=== PATIENT | female | born 1995 | race Caucasian/White ===

== ENCOUNTER 2016-10-21 23:41 | Emergency (ER) | payer OTHER ==
[~2016-10-21] VITALS: Ht 157.5 cm; Wt 51.7 kg
[2016-10-21 23:46] VITALS: TEMP 36.7; Ht 157.5 cm; Wt 51.7 kg
[2016-10-22] MEDS ORDERED: SODIUM CHLORIDE 0.9% 1000ML 1,000 ML IV STA (00:21)
[2016-10-22] MEDS ORDERED: PROCHLORPERAZINE 5 MG/ML 2 ML VIAL IV STA (00:21)
[2016-10-22] MEDS ORDERED: DiphenhydrAMINE HCL 50 MG/ML VIAL IV STA (00:21)
[2016-10-22] MEDS ORDERED: METHYLPREDNISOLONE 125 MG VIAL IV STA (00:21)
--- NOTE | 2016-10-22 00:29 | EMERGENCY ROOM VISIT NOTE ---
History Report prepared by Prabhu: Harvey Jacinto Under the Supervision of: Dr. Anaya Oneal M.D. First contact with patient: 00:11 Chief Complaint: HEAD PAIN Stated Complaint: BLURRED VISION,HEAD PAIN,BACK STIFF,NAUSEOUS History of Present Illness The patient is a 21 year old female who presents to the Emergency Room with complaints of an on and off headache for the past month. She currently rates her discomfort as a 2/10 in severity, and it can go up to 6-7/10 in severity. The patient states that the pain is like a pressure and a sharp pain in the back of her head, and she states that it is different than he past migraines. She states that she used to get five or six migraines per week, and her last one was about 3 years ago when she was put on medication, though she states that she no longer takes it. She states that she has been having nausea, blurry vision, and a sore throat, and it is worse when she is focusing. She denies any fever or vomiting. Source of History: patient Onset: past month Position: head Symptom Intensity: 2/10 Quality: pressure, sharp Timing: other (on and off) Modifying Factors (Worsening): other (focusing) Associated Symptoms: + nausea, + sorethroat, No fevers, No vomiting Note: Associated symptoms: Blurry vision Review of Systems See HPI for pertinent positives & negatives. A total of 10 systems reviewed and were otherwise negative. Past Medical & Surgical Medical Problems: (1) Migraines Surgical Problems: (1) H/O knee surgery Family History Heart disease Hypertension Kidney disease Kidney stones Lung disease Social History Smoking Status: Never Smoker Marital Status: single Housing Status: lives with roommate Occupation Status: Organizer student Current/Historical Medications Scheduled Prednisone (Prednisone), 10 MG PO DIRECTED Physical Exam Vital Signs Date Time Temp Pulse Resp B/P Pulse Ox O2 Delivery O2 Flow Rate FiO2 10/22/16 02:25 78 16 122/72 99 10/21/16 23:46 36.7 89 18 124/83 94 Room Air Physical Exam Vital signs reviewed. General: Well-appearing female, in no significant distress. HEENT: No scleral icterus, PERRLA, neck supple. Atraumatic. Cardiovascular: Regular rate and rhythm, no extra sounds. Pulmonary: Clear to auscultation bilaterally, normal work of breathing. Abdomen: Soft, nontender, nondistended, positive bowel sounds. Musculoskeletal: Atraumatic, no peripheral edema. Neurologic: Patient awake alert and oriented x 3, full strength in all 4 extremities. Cranial nerves 2 through 12 grossly intact. Skin: Warm, dry, no rash Medical Decision & Procedures ER Provider Diagnostic Interpretation: Radiology results as stated below per my review and radiologist interpretation: CT HEAD: No evidence of acute infarct, hemorrhage, mass or edema. The sinuses are patent. No acute osseous abnormalities. Laboratory Results 10/22/16 00:58 Red Blood Count 4.77, Mean Corpuscular Volume 91.4, Mean Corpuscular Hemoglobin 31.4, Mean Corpuscular Hemoglobin Concent 34.4, Mean Platelet Volume 9.4, Neutrophils (%) (Auto) 52.7, Lymphocytes (%) (Auto) 38.4, Monocytes (%) (Auto) 7.5, Eosinophils (%) (Auto) 0.8, Basophils (%) (Auto) 0.3, Neutrophils # (Auto) 6.29, Lymphocytes # (Auto) 4.56, Monocytes # (Auto) 0.89, Eosinophils # (Auto) 0.09, Basophils # (Auto) 0.03 10/22/16 00:58 Test 10/22/16 00:58 White Blood Count 11.89 K/uL (4.8-10.8) Red Blood Count 4.77 M/uL (4.2-5.4) Hemoglobin 15.0 g/dL (12.0-16.0) Hematocrit 43.6 % (37-47) Mean Corpuscular Volume 91.4 fL (80-100) Mean Corpuscular Hemoglobin 31.4 pg (25-34) Mean Corpuscular Hemoglobin Concent 34.4 g/dl (32-36) Platelet Count 329 K/uL (130-400) Mean Platelet Volume 9.4 fL (7.4-10.4) Neutrophils (%) (Auto) 52.7 % Lymphocytes (%) (Auto) 38.4 % Monocytes (%) (Auto) 7.5 % Eosinophils (%) (Auto) 0.8 % Basophils (%) (Auto) 0.3 % Neutrophils # (Auto) 6.29 K/uL (1.4-6.5) Lymphocytes # (Auto) 4.56 K/uL (1.2-3.4) Monocytes # (Auto) 0.89 K/uL (0.11-0.59) Eosinophils # (Auto) 0.09 K/uL (0-0.5) Basophils # (Auto) 0.03 K/uL (0-0.2) RDW Standard Deviation 42.8 fL (36.4-46.3) RDW Coefficient of Variation 12.7 % (11.5-14.5) Immature Granulocyte % (Auto) 0.3 % Immature Granulocyte # (Auto) 0.03 K/uL (0.00-0.02) Anion Gap 7.0 mmol/L (3-11) Est Creatinine Clear Calc Drug Dose 89.9 ml/min Estimated GFR () 124.9 Estimated GFR (Non- 107.8 BUN/Creatinine Ratio 12.7 (10-20) Calcium Level 9.3 mg/dl (8.5-10.1) Total Bilirubin 0.4 mg/dl (0.2-1) Direct Bilirubin < 0.1 mg/dl (0-0.2) Aspartate Amino Transf (AST/SGOT) 16 U/L (15-37) Alanine Aminotransferase (ALT/SGPT) 25 U/L (12-78) Alkaline Phosphatase 62 U/L (45-117) Total Protein 8.2 gm/dl (6.4-8.2) Albumin 4.4 gm/dl (3.4-5.0) Thyroid Stimulating Hormone (TSH) 6.330 uIu/ml (0.300-4.500) Free Thyroxine 1.13 ng/dl (0.80-1.60) Free Triiodothyronine 4.82 pg/ml (2.30-4.20) Human Chorionic Gonadotropin, Qual NEG (NEG) Laboratory results per my review. Medications Administered Medications (Trade) Dose Ordered Sig/Caleb Route Start Time Stop Time Status Last Admin Dose Admin Methylprednisolone Sodium Succinate 125 mg 125 mg NOW STAT IV 10/22/16 00:21 10/22/16 00:24 DC 10/22/16 01:17 125 MG Sodium Chloride (Nss 1000ml) 1,000 ml @ 999 mls/hr Q1H1M STAT IV 10/22/16 00:21 10/22/16 01:21 DC 10/22/16 01:09 999 MLS/HR ED Course 0013: Past medical records reviewed. The patient was evaluated in room C5. A complete history and physical examination was performed. 0021: Sodium Chloride 1000 ml @ 999 mls/hr IV, Solu-Medrol IV 125mg IV 0158: Upon reevaluation, the patient appeared to have improvement of her symptoms. I discussed findings with her. She verbalized agreement of the treatment plan. She was discharged home. Medical Decision Headache: Intracranial hemorrhage, intracranial mass, migraine headache, tension headache , sinusitis, meningitis This patient was evaluated and appeared to be in no significant distress. Physical examination is fairly unrevealing. Patient was given IV Solu-Medrol, IV Compazine and Benadryl were ordered however the patient declined them. She states her headache is a 2/10. I suspect the patient is suffering from a migraine headache. CT scan of the head was performed as the patient has never experienced a headache of this duration and location. Laboratory work reveals a mild leukocytosis. The patient was given a prescription for a prednisone taper. She'll follow-up with her neurologist upon return home in a few weeks. She will return to the ER for worsening of symptoms or any medical concerns. Impression Primary Impression: Migraine Additional Impression: Headache, occipital Scribe Attestation The scribe's documentation has been prepared under my direction and personally reviewed by me in its entirety. I confirm that the note above accurately reflects all work, treatment, procedures, and medical decision making performed by me. Departure Information Dispostion Home / Self-Care Prescriptions Prednisone (Prednisone) 10 Mg Tab 10 MG PO DIRECTED, #31 TAB 40 mg daily for 4 days, 30 mg for 3 days, 20 mg for 2 days, 10 mg for 2 days. Prov: Anaya Oneal M.D. 10/22/16 Referrals No Doctor, Assigned (PCP) Forms HOME CARE DOCUMENTATION FORM, IMPORTANT VISIT INFORMATION, WORK / SCHOOL INSTRUCTIONS Patient Instructions My [facility] Additional Instructions Diagnosis: Migraine headache Prednisone 40 mg for 4 days, 30 mg for 3 days, 20 mg for 2 days, 10 mg for 2 days. Drink plenty of clear fluids. Tylenol 650 mg every 6 hours as needed for pain. Follow-up with neurology upon return home. Return to the ER for worsening of symptoms or any medical concerns. Problem Qualifiers Primary Impression: Migraine Migraine type: unspecified Status migrainosus presence: with status migrainosus Intractability: intractable Qualified Codes: G43.911 - Migraine , unspecified, intractable, with status migrainosus
[2016-10-22 01:15] LABS: BASO % 0.3 %; BASO ABS # 0.03 K/uL (0-0.2); COMPLETE YES; EOS % 0.8 %; HEMATOCRIT 43.6 % (37-47); IG% 0.3 %; LYMPH % 38.4 %; LYMPH ABS # 4.56 K/uL (1.2-3.4); MEAN CELL VOLUME 91.4 fL (80-100); MEAN CORPUSCULAR HEMOGLOBIN 31.4 pg (25-34); MEAN CORPUSCULAR HGB CONC 34.4 g/dl (32-36); MEAN PLATELET VOLUME 9.4 fL (7.4-10.4); MONO % 7.5 %; NEUT % 52.7 %; PLATELET COUNT 329 K/uL (130-400); RED BLOOD COUNT 4.77 M/uL (4.2-5.4); WHITE BLOOD COUNT 11.89 K/uL (4.8-10.8)
[2016-10-22 01:33] LABS: ALT/SGPT 25 U/L (12-78); AST/SGOT 16 U/L (15-37); BLOOD UREA NITROGEN 10 mg/dl (7-18); BUN/CREATININE RATIO 12.7 (10-20); CALCIUM 9.3 mg/dl (8.5-10.1); CARBON DIOXIDE 29 mmol/L (21-32); CHLORIDE 104 mmol/L (98-107); CREATININE 0.79 mg/dl (0.60-1.20); GLUCOSE 94 mg/dl (70-99); POTASSIUM 3.8 mmol/L (3.5-5.1); SODIUM 140 mmol/L (136-145)
[2016-10-22 01:39] LABS: PREG INTERNAL NEGATIVE QC NEG CLEAR BACKGROUND; PREG INTERNAL POSITIVE QC POS CONTROL LINE
[2016-10-22 01:44] LABS: ALKALINE PHOSPHATASE 62 U/L (45-117)
[2016-10-22] MEDS ORDERED: PRED10TA PO (01:58)
[2016-10-22 02:25] VITALS: BP 122/72; PULSE 78; O2SAT 99
--- NOTE | 2016-10-22 07:08 | DIAGNOSTIC IMAGING REPORT ---
CT SCAN OF THE BRAIN WITHOUT IV CONTRAST CLINICAL HISTORY: Headache. COMPARISON STUDY: No priors. TECHNIQUE: Unenhanced axial CT scan of the brain is performed from the vertex to the skull base. Automated dose control exposure was utilized. CT DOSE: 537.48 mGy.cm FINDINGS: Brain parenchyma: The brain parenchyma is normal in appearance. There is no hemorrhage, mass effect, or evidence of acute territorial ischemia by CT criteria. Garcia-white matter is preserved. No extra-axial fluid collection is seen. Ventricles, sulci, cisterns: Normal in configuration. Intracranial vasculature: The visualized intracranial vasculature at the skull base is normal in appearance. Calvarium: Unremarkable. Sinuses and mastoids: Trace fluid is seen within the sphenoid sinuses. The remaining visualized paranasal sinuses are clear. The mastoid air cells are well pneumatized. Orbits: The bony orbits are grossly intact. IMPRESSION: No acute intracranial abnormality. Electronically signed by: Douglas Miranda M.D. 10/22/2016 7:06 AM Dictated Date/Time: 10/22/2016 7:05 AM
== END 2016-10-22 02:25 | disposition home or self-care (01) ==
LOC: C.EDB 23:42 → C.EDC 10-22 02:25
DX: G43.911 Migraine, unspecified, intractable, with status migrainosus (principal); J02.9 Acute pharyngitis, unspecified; Z82.49 Family history of ischemic heart disease and other diseases of the circulatory system; Z83.6 Family history of other diseases of the respiratory system; Z84.1 Family history of disorders of kidney and ureter